=== PATIENT | female | born 1955 | race Caucasian/White ===

== ENCOUNTER → 2017-12-23 | Outpatient (CLI) | payer BC ==
[~2017-12-23] MED LIST: ALBU90OI INH; AMLO5 PO; ASCO500 PO; ASPI81EC PO; CALCAVITDA PO; CYCL10 PO; FLUSAL2505 IH; FURO40 PO; GABA300 PO; METO50 PO; OMEP20ER PO; ONDA4 PO; ONDA4ODT MM; POTCHL20ER PO; SENN187 PO; SPIR25 PO; TORSE20 PO; TRAZ50 PO; WARF5 PO
== END ==
LOC: LAB SHORT 09:55 → PLD 09:55
DX: L57.0 Actinic keratosis (principal)
CPT/HCPCS: 88305